=== PATIENT | male | born 1980 | race Two or more races ===

== ENCOUNTER 2017-07-31 11:04 | Emergency (ER) | payer OTHER ==
[2017-07-31] MEDS ORDERED: LIDO:MAALOX:DONNATAL 1:1:1 15 ML SINGLE DOSE SWSW (11:45)
[2017-07-31] MEDS: IOHEXOL 300 MG/ML 100ML VIAL. IV (11:45)
[2017-07-31] MEDS ORDERED: 0.9 % SODIUM CHLORIDE 10 ML DISP.SYRIN. IV (11:45)
[2017-07-31] MEDS: LIDO:MAALOX 1:1 20 ML SINGLE DOSE. PO (11:54)
[2017-07-31] MEDS: ONDANSETRON PF 4 MG/2 ML VIAL. IV (11:57)
[2017-07-31] MEDS: IV NORMAL SALINE 1000ML BAG 1,000 ML IV (11:57)
[2017-07-31 11:59] LABS: ADD MAN DIFF? NO
[2017-07-31] MEDS ORDERED: CONTRAST GIVEN MC (12:00)
[2017-07-31] MEDS ORDERED: LIDO:MAALOX 1:1 20 ML SINGLE DOSE. PO (12:00)
[2017-07-31 12:03] LABS: BASO # 0.1 x10^3/uL (0.0-0.2); BASO % 1 % (0-3); EOS # 0.1 x10^3/uL (0.0-0.7); EOS % 2 % (0-3); HEMATOCRIT 43.7 % (39.0-53.0); HEMOGLOBIN 15.1 g/dL (13.0-17.5); LYMPH # 2.4 x10^3/uL (1.0-4.8); LYMPH % 37 % (24-48); MEAN CORPUSCULAR HEMOGLOBIN 32 pg (25-35); MEAN CORPUSCULAR HGB CONC 35 g/dL (31-37); MEAN CORPUSCULAR VOLUME 93 fL (79-100); MONO # 0.5 x10^3/uL (0.0-1.1); MONO % 8 % (0-9); NEUT # 3.4 x10^3uL (1.8-7.7); NEUT % 52 % (31-73); PLATELET COUNT 245 x10^3/uL (140-400); RED CELL DISTRIBUTION WIDTH 13.3 % (11.5-14.5); WHITE BLOOD COUNT 6.5 x10^3/uL (4.0-11.0)
[2017-07-31 12:17] LABS: ANION GAP 9 (6-14); BLOOD UREA NITROGEN 9 mg/dL (8-26); CALCIUM 8.8 mg/dL (8.5-10.1); CARBON DIOXIDE 28 mmol/L (21-32); CHLORIDE 103 mmol/L (98-107); GFR 84.5; GLUCOSE 102 mg/dL (70-99); POTASSIUM 3.7 mmol/L (3.5-5.1); SODIUM 140 mmol/L (136-145)
[2017-07-31 12:23] LABS: ALBUMIN 3.6 g/dL (3.4-5.0); ALK PHOS 284 U/L (46-116); ALT (SGPT) 387 U/L (16-63); AST (SGOT) 106 U/L (15-37); DIRECT BILIRUBIN 0.9 mg/dL (0.0-0.2); LIPASE 93 U/L (73-393); TOTAL BILIRUBIN 1.9 mg/dL (0.2-1.0); TOTAL PROTEIN 8.3 g/dL (6.4-8.2)
[2017-07-31 12:25] LABS: TROPONINI < 0.017 ng/mL (0.000-0.055)
[2017-07-31 12:30] LABS: CKMB INDEX 0.4 % (0-4); CKMB MASS 0.7 ng/mL (0.0-3.6); CREATINE KINASE 167 U/L (39-308)
[2017-07-31 13:55] LABS: BARBITURATES NEG (NEG); BENZODIAZEPINES NEG (NEG); CANNABINOIDS NEG (NEG); COCAINE NEG (NEG); METHADONE NEG (NEG); OPIATES NEG (NEG); PHENCYCLIDINE NEG (NEG)
[2017-07-31 13:57] LABS: AMPHETAMINE/METHAMPHETAMINE NEG (NEG); ETHANOL, URINE NEG (NEG)
[2017-07-31 13:59] LABS: BACTERIA,URINE 0 /HPF (0-FEW); BILIRUBIN,URINE SMALL (NEG); CLARITY,URINE CLEAR; COLOR,URINE AMBER; GLUCOSE,URINE NEGATIVE (NEG); NITRITE,URINE NEGATIVE (NEG); PROTEIN,URINE NEGATIVE (NEG-TRACE); RBC,URINE 0 /HPF (0-2); SQUAMOUS EPITHELIAL CELL,UR OCC /LPF; WBC,URINE OCC /HPF (0-4)
[2017-07-31 14:49] LABS: FECAL OB PT NEGATIVE (NEG); NEG OBC FOB NEG; POS OBC FOB POS
== END 2017-07-31 15:00 | disposition home or self-care (01) ==
LOC: ER 11:04
DX: K21.9 Gastro-esophageal reflux disease without esophagitis (principal); K80.20 Calculus of gallbladder without cholecystitis without obstruction; B19.20 Unspecified viral hepatitis C without hepatic coma; F31.9 Bipolar disorder, unspecified; F17.210 Nicotine dependence, cigarettes, uncomplicated
CPT/HCPCS: 36415; 74177; 80048; 80076; 80307; 81001; 82274; 82553; 83690; 84484; 85025; 86850; 86900; 86901; 93005; 96361; 96374; 99285-25; J2405; J7030; Q9967

== ENCOUNTER 2017-09-28 05:49 | Day surgery (SDC) | payer OTHER ==
[2017-09-28] MEDS ORDERED: SURGICEL HEMOSTAT 4X8 EACH. (06:15)
[2017-09-28] MEDS ORDERED: GLUCAGON,HUMAN RECOMBINANT 1 MG/ML VIAL. (06:15)
[2017-09-28] MEDS: IV RINGERS,LACTATED 1000ML 1,000 ML IV ×2 (06:29→09:30)
[2017-09-28 06:34] LABS: ADD MAN DIFF? NO
[2017-09-28 06:54] LABS: ANION GAP 12 (6-14); BLOOD UREA NITROGEN 10 mg/dL (8-26); CALCIUM 8.5 mg/dL (8.5-10.1); CARBON DIOXIDE 25 mmol/L (21-32); CHLORIDE 103 mmol/L (98-107); CREATININE 0.9 mg/dL (0.7-1.3); GLUCOSE 97 mg/dL (70-99); POTASSIUM 3.6 mmol/L (3.5-5.1); SODIUM 140 mmol/L (136-145)
[2017-09-28 06:59] LABS: ALBUMIN 3.6 g/dL (3.4-5.0); TOTAL BILIRUBIN 1.1 mg/dL (0.2-1.0)
[2017-09-28] MEDS ORDERED: fentaNYL PF VIAL 100 MCG/2 ML VIAL IV (07:00)
[2017-09-28] MEDS ORDERED: LIDOCAINE 1% PF 2 ML VIAL. ID (07:00)
[2017-09-28 07:18] LABS: BASO % 1 % (0-3); EOS # 0.1 x10^3/uL (0.0-0.7); EOS % 1 % (0-3); HEMATOCRIT 39.7 % (39.0-53.0); HEMOGLOBIN 14.1 g/dL (13.0-17.5); LYMPH # 2.8 x10^3/uL (1.0-4.8); LYMPH % 41 % (24-48); MEAN CORPUSCULAR HEMOGLOBIN 32 pg (25-35); MEAN CORPUSCULAR HGB CONC 36 g/dL (31-37); MEAN CORPUSCULAR VOLUME 91 fL (79-100); MONO # 0.6 x10^3/uL (0.0-1.1); MONO % 9 % (0-9); NEUT # 3.2 x10^3uL (1.8-7.7); NEUT % 48 % (31-73); PLATELET COUNT 219 x10^3/uL (140-400); RED BLOOD COUNT 4.36 x10^6/uL (4.30-5.70); RED CELL DISTRIBUTION WIDTH 13.3 % (11.5-14.5); WHITE BLOOD COUNT 6.7 x10^3/uL (4.0-11.0)
[2017-09-28] MEDS ORDERED: fentaNYL PF VIAL 100 MCG/2 ML VIAL ×2 (07:36→09:17)
[2017-09-28] MEDS ORDERED: ROCURONIUM 50 MG/5 ML VIAL. (07:36)
[2017-09-28] MEDS ORDERED: MIDAZOLAM HCL/PF 2 MG/2 ML VIAL. (07:36)
[2017-09-28] MEDS ORDERED: ONDANSETRON PF 4 MG/2 ML VIAL. (07:38)
[2017-09-28] MEDS ORDERED: SEVOFLURANE 61 TO 120 MINUTES. IH (07:38)
[2017-09-28] MEDS ORDERED: PROPOFOL 20 ML IV (07:38)
[2017-09-28] MEDS ORDERED: DEXAMETHASONE SOD PHOS 20 MG/5 ML VIAL. (07:38)
[2017-09-28] MEDS: BUPIVACAINE-EPI 0.25%-1:200000 50 ML VIAL. (08:17)
[2017-09-28] MEDS: IOHEXOL 300 MG/ML 100ML VIAL. (08:17)
[2017-09-28] MEDS ORDERED: ESMOLOL 100 MG/10 ML VIAL. IV (08:18)
[2017-09-28] MEDS ORDERED: GLYCOPYRROLATE 1 MG/5 ML VIAL. (08:37)
[2017-09-28] MEDS ORDERED: NEOSTIGMINE METHYLSULFATE 5 MG/5 ML SYRINGE. (08:37)
[2017-09-28] MEDS: PROCHLORPERAZINE 10 MG/2 ML VIAL. IV (09:10)
[2017-09-28] MEDS: fentaNYL PF VIAL 100 MCG/2 ML VIAL IV ×4 (09:10→10:52)
[2017-09-28] MEDS ORDERED: PROCHLORPERAZINE 10 MG/2 ML VIAL. (09:17)
[2017-09-28] MEDS: MORPHINE SULFATE 2 MG/ML DISP.SYRIN. IV ×4 (09:36→10:17)
[2017-09-28] MEDS: oxyCODONE/APAP 5/325 1 TAB TABLET PO (10:52)
[2017-09-28] MEDS ORDERED: ceFAZolin 2GM PREMIX 2 GM/50 ML BAG IV (12:00)
== END 2017-09-28 11:24 | disposition home or self-care (01) ==
LOC: SURG 05:49
DX: K80.12 Calculus of gallbladder with acute and chronic cholecystitis without obstruction (principal); Z79.899 Other long term (current) drug therapy; F41.9 Anxiety disorder, unspecified; F31.9 Bipolar disorder, unspecified; K21.9 Gastro-esophageal reflux disease without esophagitis; Z86.19 Personal history of other infectious and parasitic diseases; Z87.11 Personal history of peptic ulcer disease; Z87.891 Personal history of nicotine dependence; I25.9 Chronic ischemic heart disease, unspecified
CPT/HCPCS: 36415; 74300; 80048; 82040; 82247; 85025; 88304; A7015; J0690; J0780; J1100; J1610; J2250; J2270; J2405; J2704; J2710; J3010; J3490; J7030; Q9967